=== PATIENT | female | born 1950 | race African-American/Black ===

== ENCOUNTER 2016-06-30 06:53 | Day surgery (SDC) | payer OTHER ==
[~2016-06-30] VITALS: Ht 162.6 cm; Wt 104.3 kg
[~2016-06-30 06:53] MED LIST: LOSA1TAB34 PO; METF-240 PO
[2016-06-30 07:38] LABS: BASOPHILS % 0.8 % (0.0-2.0); EOSINOPHILS % 1.9 % (0.0-5.0); HEMOGLOBIN. 13.2 g/dL (12.0-16.0); LYMPHOCYTES % 44.1 % (20.0-50.0); MEAN CORPUSCULAR HEMOGLOBIN 28.8 pg (28.0-32.0); MEAN CORPUSCULAR VOLUME 87.2 fL (81.0-99.0); MEAN PLATELET VOLUME 8.7 fl (7.4-10.4); NEUTROPHILS % 46.2 % (40.0-76.0); PLATELET 261 x1000/uL (130-400); RED BLOOD CELL COUNT 4.59 mill/uL (4.2-5.4); RED CELL DISTRIBUTION WIDTH 15.2 % (11.6-14.6); WHITE BLOOD COUNT 5.8 x1000/uL (4.5-11.0)
[2016-06-30 07:48] LABS: ANION GAP 11; CALCIUM 8.4 mg/dL (8.5-10.1); CARBON DIOXIDE 28 mEq/L (21-32); CHLORIDE 106 mEq/L (98-107); INDEX HEMOLYSI 1 (1-3); INDEX ICTERIC 1 (1-4); INDEX LIPEMIC 1 (1-3); PARTIAL THROMBOPLASTIN TIME 28.5 sec (24.0-34.0); PROTHROMBIN TIME 10.5 sec; UREA NITROGEN BLOOD 11 mg/dL (7-21); eGFR > 60 mL/min (>60)
[2016-06-30 07:59] LABS: CLARITY URINE CLEAR (CLEAR); COLOR URINE YELLOW (YELLOW); GLUCOSE URINE NEGATIVE (NEGATIVE); KETONES URINE NEGATIVE (NEGATIVE); LEUKOCYTE ESTERASE URINE NEGATIVE (NEGATIVE); NITRITE URINE NEGATIVE (NEGATIVE); OCCULT BLOOD URINE NEGATIVE (NEGATIVE); PH URINE 5.5 (4.5-8.0); PROTEIN URINE NEGATIVE (NEGATIVE)
[2016-06-30 08:00] LABS: UCG SCREEN NEGATIVE
[2016-06-30] MEDS ORDERED: SODIUM CHLORIDE 0.9% 1,000 ML IV SCH (08:00)
[2016-06-30] MEDS ORDERED: FENTANYL CITRATE/PF 50MCG/ML 2ML VIAL IV PRN (09:15)
[2016-06-30] MEDS ORDERED: ONDANSETRON HCL 4MG/2ML VIAL IV PRN (09:15)
[2016-06-30] MEDS ORDERED: HYDROMORPHONE HCL/PF 2MG/ML CPJ IV PRN (09:15)
[2016-06-30] MEDS ORDERED: MIDAZOLAM HCL 2 MG/2 ML VIAL ONE (09:16)
[2016-06-30] MEDS ORDERED: FENTANYL CITRATE/PF 50MCG/ML 2ML VIAL ONE (09:16)
[2016-06-30] MEDS ORDERED: CEFAZOLIN SODIUM 1000MG/VIAL ONE (09:52)
[2016-06-30] MEDS ORDERED: PROPOFOL 200MG/20ML VIAL IV ONE (10:26)
[2016-06-30] MEDS ORDERED: HYDROCODONE/ACETAMINOPHEN 5/325MG TABLET PO PRN (10:45)
[2016-06-30 12:34] VITALS: BP 134/79
== END 2016-06-30 14:30 | disposition home or self-care (01) ==
LOC: OR 06:53
PROVIDERS: ATTEND Obstetrics & Gynecology Obstetrics
DX: N84.0 Polyp of corpus uteri (principal); E11.9 Type 2 diabetes mellitus without complications; I10 Essential (primary) hypertension; E66.9 Obesity, unspecified
CPT/HCPCS: 36415; 58558; 80048; 81003; 81025; 85025; 85610; 85730; 88305; 93005; J0690; J2250; J3010; J7030; J2704

== ENCOUNTER 2017-06-29 05:22 | Day surgery (SDC) | payer OTHER ==
[~2017-06-29] VITALS: Ht 162.6 cm; Wt 99.8 kg
[~2017-06-29 05:22] MED LIST changes: -METF-240 PO; +METF500T4 PO
[2017-06-29 06:14] LABS: BASOPHILS % 1.1 % (0.0-2.0); EOSINOPHILS % 1.7 % (0.0-5.0); HEMATOCRIT. 40.9 % (36.0-48.0); HEMOGLOBIN. 13.8 g/dL (12.0-16.0); LYMPHOCYTES % 39.9 % (20.0-50.0); MEAN CORPUSCULAR HEMOGLOBIN 29.6 pg (28.0-32.0); MEAN PLATELET VOLUME 8.5 fl (7.4-10.4); MONOCYTES % 6.6 % (2.0-8.0); NEUTROPHILS % 50.7 % (40.0-76.0); PLATELET 260 x1000/uL (130-400); RED BLOOD CELL COUNT 4.65 mill/uL (4.2-5.4); RED CELL DISTRIBUTION WIDTH 15.2 % (11.6-14.6)
[2017-06-29 06:23] LABS: PARTIAL THROMBOPLASTIN TIME 28.5 sec (23.4-31.0); PROTHROMBIN TIME 10.6 sec (9.4-11.6)
[2017-06-29 06:27] LABS: CHLORIDE 106 mEq/L (98-107)
[2017-06-29] MEDS ORDERED: LACTATED RINGERS 1,000 ML IV SCH (06:30)
[2017-06-29 06:31] LABS: CLARITY URINE CLOUDY (CLEAR); COLOR URINE YELLOW (YELLOW); KETONES URINE NEGATIVE (NEGATIVE); LEUKOCYTE ESTERASE URINE NEGATIVE (NEGATIVE); NITRITE URINE NEGATIVE (NEGATIVE); OCCULT BLOOD URINE NEGATIVE (NEGATIVE); PH URINE 5.5 (4.5-8.0); PROTEIN URINE NEGATIVE (NEGATIVE); UROBILINOGEN URINE 0.2 E.U./dL (0.2-1.0)
[2017-06-29 06:34] LABS: UCG SCREEN NEGATIVE
[2017-06-29] MEDS ORDERED: MIDAZOLAM HCL 2 MG/2 ML VIAL ONE (07:16)
[2017-06-29] MEDS ORDERED: PROPOFOL 200MG/20ML VIAL IV ONE (07:16)
[2017-06-29] MEDS ORDERED: FENTANYL CITRATE/PF 50MCG/ML 2ML VIAL ONE (07:16)
[2017-06-29] MEDS ORDERED: SODIUM CHLORIDE 0.9% 10ML VIAL ONE (07:18)
[2017-06-29] MEDS ORDERED: CEFAZOLIN SODIUM 1000MG/VIAL ONE (07:18)
[2017-06-29] MEDS ORDERED: LIDOCAINE HCL/PF 1% 10 MG/ML 5ML VIAL ONE (07:29)
[2017-06-29] MEDS ORDERED: GLYCOPYRROLATE 0.2 MG/ML 2ML VIAL ONE (07:33)
[2017-06-29] MEDS ORDERED: MORPHINE SULFATE 2 MG/ML CPJ (NOT FOR IM USE) IV PRN (07:45)
[2017-06-29] MEDS ORDERED: ONDANSETRON HCL 4MG/2ML VIAL IV PRN (07:45)
[2017-06-29] MEDS ORDERED: FENTANYL CITRATE/PF 50MCG/ML 2ML VIAL IV PRN (07:45)
[2017-06-29] MEDS ORDERED: MEPERIDINE HCL/PF 25MG/ML CPJ IV PRN (07:45)
== END 2017-06-29 10:35 | disposition home or self-care (01) ==
LOC: OR 05:22
PROVIDERS: ATTEND Obstetrics & Gynecology Obstetrics
DX: N84.0 Polyp of corpus uteri (principal); Z83.3 Family history of diabetes mellitus; Z98.890 Other specified postprocedural states; E11.9 Type 2 diabetes mellitus without complications; I10 Essential (primary) hypertension; E66.9 Obesity, unspecified
CPT/HCPCS: 36415; 58558; 80048; 81003; 81025; 85025; 85610; 85730; 88305; 93005; A4216; J0690; J2250; J3010; J3490; J7120; J2704

== ENCOUNTER 2019-08-21 12:39 | Inpatient (IN) | payer OTHER ==
[~2019-08-21] VITALS: Ht 167.6 cm; Wt 93.1 kg
[~2019-08-21 12:39] MED LIST changes: +METF-414 PO; -METF500T4 PO
[2019-08-21] MEDS ORDERED: ACETAMINOPHEN 325MG TABLET PO STA (12:49)
[2019-08-21] MEDS ORDERED: ACETAMINOPHEN 325MG TABLET PO ONE (13:30)
[2019-08-21] MEDS ORDERED: ALBUTEROL 6.7GM HFA INHALER ORI ONE (14:15)
[2019-08-21 14:17] LABS: BASOPHILS % 0.8 % (0.0-2.0); HEMATOCRIT. 37.9 % (36.0-48.0); HEMOGLOBIN. 12.8 g/dL (12.0-16.0); LYMPHOCYTES % 17.9 % (20.0-50.0); MEAN CORPUSCULAR HEMOGLOBIN 30.1 pg (28.0-32.0); MEAN CORPUSCULAR VOLUME 88.9 fL (81.0-99.0); MEAN PLATELET VOLUME 9.6 fl (7.4-10.4); MONOCYTES % 4.6 % (2.0-8.0); NEUTROPHILS % 76.7 % (40.0-76.0); PLATELET 216 x1000/uL (130-400); RED BLOOD CELL COUNT 4.26 mill/uL (4.2-5.4); RED CELL DISTRIBUTION WIDTH 14.9 % (11.6-14.6)
[2019-08-21 14:21] LABS: CHLORIDE 105 mEq/L (98-107)
[2019-08-21] MEDS ORDERED: HYDROCODONE/ACETAMINOPHEN 5/325MG TABLET PO PRN (14:30)
[2019-08-21] MEDS ORDERED: GUAIFENESIN 200MG/10ML SUGAR FREE UDC PO PRN (14:30)
[2019-08-21] MEDS ORDERED: LORAZEPAM 0.5MG TABLET PO PRN (14:30)
[2019-08-21] MEDS ORDERED: NA PHOS,M-B/NA PHOS,DI-BA ENEMA 118ML PR PRN (14:30)
[2019-08-21] MEDS ORDERED: ONDANSETRON HCL 4MG/2ML INJ IV PRN (14:30)
[2019-08-21] MEDS ORDERED: PIPERACILLIN/TAZOBACTAM 2.25 G in DEXTROSE 5% WATER 50 ML IV SCH (14:30)
[2019-08-21] MEDS ORDERED: IPRATROPIUM/ALBUTEROL 0.5-3(2.5)MG/3ML NEB NEB PRN (14:30)
[2019-08-21] MEDS ORDERED: MAGNESIUM/ALUMINUM HYDROXIDE/SIMETHICONE 30ML UDC PO PRN (14:30)
[2019-08-21] MEDS ORDERED: DIPHENHYDRAMINE 50MG/ML VIAL IV PRN (14:30)
[2019-08-21] MEDS ORDERED: ACETAMINOPHEN 325MG TABLET PO PRN (14:30)
[2019-08-21] MEDS: DEXT 5%/0.45% NACL 1000ML 1,000 ML IV SCH (14:30)
[2019-08-21] MEDS ORDERED: CLONIDINE 0.1MG TABLET PO PRN (14:30)
[2019-08-21] MEDS ORDERED: DOCUSATE SODIUM 100MG CAPSULE PO PRN (14:30)
[2019-08-21 14:59] LABS: BG BASE EXCESS -6.1 mmol/L (-2.0-2.0); BG CARBOXYHEMOGLOBIN 0.2 % (0.5-1.5); BG DEOXYHEMOGLOBIN 7.3 % (0.0-5.0); BG HCO3 ACT 17.8 mmol/L (22.0-26.0); BG METHEMOGLOBIN 0.3 % (0.0-1.5); BG OXYGEN SATURATION 92.7 % (92.0-98.5); BG OXYHEMOGLOBIN 92.2 % (94.0-97.0); BG PCO2 30.3 mmHg (35.0-45.0); BG PH 7.386 (7.350-7.450); BG PO2 74.8 mmHg (75.0-100.0); BG SAMPLE SITE RIGHT BRACHIAL; BG TOTAL HEMOGLOBIN 12.4 g/dL (12.0-18.0); BG VENT MODE NASAL CANNULA
[2019-08-21] MEDS ORDERED: PIPERACILLIN/TAZ 3.375G PREMIX 50 ML IV SCH (16:33)
[2019-08-21] MEDS: FAMOTIDINE 20MG/2ML VIAL IV SCH (17:33)
[2019-08-21 23:02] LABS: BG BASE EXCESS -1.8 mmol/L (-2.0-2.0); BG CARBOXYHEMOGLOBIN 0.3 % (0.5-1.5); BG DEOXYHEMOGLOBIN 20.3 % (0.0-5.0); BG FRACTION INSPIRED OXYGEN 100; BG HCO3 ACT 23.3 mmol/L (22.0-26.0); BG OXYGEN SATURATION 79.6 % (92.0-98.5); BG OXYHEMOGLOBIN 79.4 % (94.0-97.0); BG PCO2 40.8 mmHg (35.0-45.0); BG PH 7.374 (7.350-7.450); BG PO2 46.1 mmHg (75.0-100.0); BG SAMPLE SITE RIGHT RADIAL; BG TOTAL HEMOGLOBIN 12.8 g/dL (12.0-18.0); BG VENT MODE MASK - NRB
[2019-08-22] MEDS ORDERED: ETOMIDATE 2MG/ML 10ML VIAL IV ONE (00:02)
[2019-08-22] MEDS ORDERED: SUCCINYLCHOLINE CHLORIDE 200MG/10ML IV ONE (00:02)
[2019-08-22] MEDS ORDERED: PROPOFOL 10MG/ML 100ML 100 ML IV SCH (00:15)
[2019-08-22] MEDS: MORPHINE SULFATE 2 MG/ML CPJ (NOT FOR IM USE) IV PRN (01:24)
[2019-08-22 02:09] LABS: CREATINE KINASE MB FRACTION 1.6 ng/mL (0.5-3.6)
[2019-08-22] MEDS: MIDAZOLAM 50 MG in DEXTROSE 5% WATER 50ML IV PRN ×2 (02:49→09:00)
[2019-08-22 03:17] LABS: BG BASE EXCESS -1.5 mmol/L (-2.0-2.0); BG CARBOXYHEMOGLOBIN 0.1 % (0.5-1.5); BG DEOXYHEMOGLOBIN 16.7 % (0.0-5.0); BG FRACTION INSPIRED OXYGEN 100; BG HCO3 ACT 23.2 mmol/L (22.0-26.0); BG METHEMOGLOBIN 0.1 % (0.0-1.5); BG OXYGEN SATURATION 83.3 % (92.0-98.5); BG OXYHEMOGLOBIN 83.1 % (94.0-97.0); BG PH 7.392 (7.350-7.450); BG PO2 50.1 mmHg (75.0-100.0); BG SAMPLE SITE RIGHT BRACHIAL; BG TIDAL VOLUME(mL) 450 mL; BG TOTAL HEMOGLOBIN 12.3 g/dL (12.0-18.0); BG VENT MODE VENT - A/C; BG VENT RATE 14 set
[2019-08-22 04:22] LABS: BASOPHILS % 0.5 % (0.0-2.0); LYMPHOCYTES % 15.6 % (20.0-50.0); MEAN CORPUSCULAR HEMOGLOBIN 29.9 pg (28.0-32.0); MEAN CORPUSCULAR VOLUME 89.7 fL (81.0-99.0); MEAN PLATELET VOLUME 8.7 fl (7.4-10.4); MONOCYTES % 3.3 % (2.0-8.0); NEUTROPHILS % 80.6 % (40.0-76.0); PLATELET 177 x1000/uL (130-400); RED BLOOD CELL COUNT 4.35 mill/uL (4.2-5.4)
[2019-08-22 04:40] LABS: CHLORIDE 109 mEq/L (98-107)
[2019-08-22 04:48] LABS: HDL CHOLESTEROL 40 mg/dL (40-59)
[2019-08-22 04:49] LABS: LDL CHOLESTEROL 66 mg/dL (5-100)
[2019-08-22 04:50] LABS: CREATINE KINASE 206 IU/L (26-192); CREATINE KINASE MB FRACTION 1.7 ng/mL (0.5-3.6); T4 FREE 1.12 ng/dL (0.76-1.46)
[2019-08-22] MEDS ORDERED: MIDAZOLAM HCL 50 MG in DEXTROSE 5% WATER 40 ML IV PRN (05:00)
[2019-08-22] MEDS ORDERED: NOREPINEPHRINE 4MG/250ML PMX 250 ML IV ONE (06:48)
[2019-08-22] MEDS: FAMOTIDINE 20MG/2ML VIAL IV SCH (09:00)
[2019-08-22] MEDS ORDERED: FUROSEMIDE 40MG/4ML VIAL IVP NR (09:45)
[2019-08-22] MEDS: DEXT 5%/0.45% NACL 1000ML 1,000 ML IV SCH (10:30)
[2019-08-22] MEDS ORDERED: PIPERACILLIN/TAZ 3.375G PREMIX 50 ML IV NR (11:15)
[2019-08-22 12:37] LABS: BG CARBOXYHEMOGLOBIN 0.3 % (0.5-1.5); BG DEOXYHEMOGLOBIN 8.6 % (0.0-5.0); BG FRACTION INSPIRED OXYGEN 100; BG HCO3 ACT 23.6 mmol/L (22.0-26.0); BG METHEMOGLOBIN 0.1 % (0.0-1.5); BG OXYGEN SATURATION 91.4 % (92.0-98.5); BG PH 7.447 (7.350-7.450); BG PO2 60.8 mmHg (75.0-100.0); BG SAMPLE SITE RIGHT RADIAL; BG TIDAL VOLUME(mL) 450 mL; BG TOTAL HEMOGLOBIN 11.4 g/dL (12.0-18.0); BG VENT MODE VENT - A/C; BG VENT RATE 14 set
[2019-08-22] MEDS ORDERED: DEXTROSE 50% WATER 50ML SYRINGE IV PRN (14:15)
[2019-08-22] MEDS: ACETAMINOPHEN 650MG SUPP PR PRN (16:19)
[2019-08-22] MEDS: BLOOD SUGAR DIAGNOSTIC STRIP TEST SCH ×2 (17:00→21:00)
[2019-08-22] MEDS: INSULIN LISPRO 100 UNITS/ML SUBCUT SCH (18:20)
[2019-08-23] VITALS (54 sets, daily range): BP systolic 121–167; BP diastolic 66–94
[2019-08-23] MEDS: METHYLPREDNISOLONE SOD SUCC 40 MG/ML VIAL IV SCH ×3 (01:26→17:37)
[2019-08-23] MEDS: ACETAMINOPHEN 650MG SUPP PR PRN (01:45)
[2019-08-23] MEDS: MIDAZOLAM HCL 50 MG in DEXTROSE 5% WATER 40 ML IV PRN ×3 (05:14→22:03)
[2019-08-23 06:04] LABS: BASOPHILS % 0.2 % (0.0-2.0); HEMATOCRIT. 36.5 % (36.0-48.0); HEMOGLOBIN. 12.3 g/dL (12.0-16.0); MEAN CORPUSCULAR HEMOGLOBIN 29.9 pg (28.0-32.0); MEAN CORPUSCULAR VOLUME 88.5 fL (81.0-99.0); MEAN PLATELET VOLUME 8.4 fl (7.4-10.4); MONOCYTES % 3.9 % (2.0-8.0); NEUTROPHILS % 87.9 % (40.0-76.0); PLATELET 211 x1000/uL (130-400); RED BLOOD CELL COUNT 4.12 mill/uL (4.2-5.4); RED CELL DISTRIBUTION WIDTH 15.2 % (11.6-14.6)
[2019-08-23 06:16] LABS: CHLORIDE 108 mEq/L (98-107)
[2019-08-23] MEDS: DEXT 5%/0.45% NACL 1000ML 1,000 ML IV SCH (07:00)
[2019-08-23] MEDS ORDERED: PIPERACILLIN/TAZ 3.375G PREMIX 50 ML IV SCH (08:00)
[2019-08-23] MEDS: ASCORBIC ACID 500 MG TABLET PO SCH (08:37)
[2019-08-23] MEDS: ZINC SULFATE 220 MG ( 50 ) CAPSULE PO SCH (08:37)
[2019-08-23] MEDS: FAMOTIDINE 20MG/2ML VIAL IV SCH (08:37)
[2019-08-23] MEDS ORDERED: ENOXAPARIN 100MG/ML SYR SUBCUT ONE (09:00)
[2019-08-23] MEDS: INSULIN LISPRO 100 UNITS/ML SUBCUT SCH ×4 (09:03→22:23)
[2019-08-23 09:18] LABS: BG CARBOXYHEMOGLOBIN 0.3 % (0.5-1.5); BG DEOXYHEMOGLOBIN 5.6 % (0.0-5.0); BG FRACTION INSPIRED OXYGEN 100; BG HCO3 ACT 23.8 mmol/L (22.0-26.0); BG METHEMOGLOBIN 0.3 % (0.0-1.5); BG OXYGEN SATURATION 94.4 % (92.0-98.5); BG OXYHEMOGLOBIN 93.8 % (94.0-97.0); BG PCO2 35.8 mmHg (35.0-45.0); BG PO2 73.9 mmHg (75.0-100.0); BG SAMPLE SITE RIGHT RADIAL; BG TIDAL VOLUME(mL) 450 mL; BG TOTAL HEMOGLOBIN 12.3 g/dL (12.0-18.0); BG VENT MODE VENT - A/C; BG VENT RATE 14 set
[2019-08-23] MEDS: BLOOD SUGAR DIAGNOSTIC STRIP TEST SCH ×3 (12:08→21:00)
[2019-08-23] MEDS: PIPERACILLIN/TAZOBACTAM 3.375 G in DEXT 5% WATER 100 ML IV SCH ×2 (12:30→17:37)
[2019-08-23] MEDS ORDERED: POTASSIUM CHLORIDE INJ 40 MEQ in DEXT 5% WATER 250 ML IV NR (12:30)
[2019-08-23] MEDS: ENOXAPARIN 100MG/ML SYR SUBCUT SCH ×2 (12:31→21:38)
[2019-08-23 14:03] LABS: BG CARBOXYHEMOGLOBIN 0.2 % (0.5-1.5); BG DEOXYHEMOGLOBIN 8.7 % (0.0-5.0); BG FRACTION INSPIRED OXYGEN 80; BG HCO3 ACT 23.4 mmol/L (22.0-26.0); BG OXYGEN SATURATION 91.3 % (92.0-98.5); BG OXYHEMOGLOBIN 91.1 % (94.0-97.0); BG PCO2 33.9 mmHg (35.0-45.0); BG PH 7.456 (7.350-7.450); BG PO2 61.6 mmHg (75.0-100.0); BG SAMPLE SITE RIGHT RADIAL; BG TIDAL VOLUME(mL) 450 mL; BG TOTAL HEMOGLOBIN 13.2 g/dL (12.0-18.0); BG VENT MODE VENT - A/C; BG VENT RATE 14 set
[2019-08-23] MEDS ORDERED: PIPERACILLIN/TAZOBACTAM 3.375 G in DEXT 5% WATER 100 ML IV SCH (18:00)
[2019-08-23] MEDS: IPRATROPIUM/ALBUTEROL 0.5-3(2.5)MG/3ML NEB NEB SCH (20:15)
[2019-08-24] VITALS (95 sets, daily range): BP systolic 126–174; BP diastolic 51–89
[2019-08-24] MEDS: PIPERACILLIN/TAZOBACTAM 3.375 G in DEXT 5% WATER 100 ML IV SCH ×5 (01:36→23:12)
[2019-08-24] MEDS: MIDAZOLAM HCL 50 MG in DEXTROSE 5% WATER 40 ML IV PRN ×4 (03:57→20:13)
[2019-08-24] MEDS: DEXT 5%/0.45% NACL 1000ML 1,000 ML IV SCH (04:10)
[2019-08-24 05:48] LABS: CHLORIDE 106 mEq/L (98-107); INR 1.1; PROTHROMBIN TIME 11.4 sec (9.6-11.0)
[2019-08-24 05:51] LABS: HEMATOCRIT 35.9 % (36.0-48.0); HEMOGLOBIN 12.2 g/dL (12.0-16.0); MEAN CORPUSCULAR VOLUME 87.8 fL (81.0-99.0); PLATELET 237 x1000/uL (130-400); RED BLOOD CELL COUNT 4.08 mill/uL (4.2-5.4); RED CELL DISTRIBUTION WIDTH 14.8 % (11.6-14.6)
[2019-08-24] MEDS: BLOOD SUGAR DIAGNOSTIC STRIP TEST SCH ×4 (06:30→21:50)
[2019-08-24] MEDS: METHYLPREDNISOLONE SOD SUCC 40 MG/ML VIAL IV SCH ×3 (07:38→17:25)
[2019-08-24] MEDS: INSULIN LISPRO 100 UNITS/ML SUBCUT SCH ×4 (07:40→21:00)
[2019-08-24 07:44] LABS: BG BASE EXCESS -0.9 mmol/L (-2.0-2.0); BG CARBOXYHEMOGLOBIN 0.2 % (0.5-1.5); BG DEOXYHEMOGLOBIN 4.7 % (0.0-5.0); BG HCO3 ACT 23.1 mmol/L (22.0-26.0); BG OXYGEN SATURATION 95.3 % (92.0-98.5); BG OXYHEMOGLOBIN 95.1 % (94.0-97.0); BG PCO2 36.5 mmHg (35.0-45.0); BG PO2 80.3 mmHg (75.0-100.0); BG SAMPLE SITE RIGHT BRACHIAL; BG TIDAL VOLUME(mL) 450 mL; BG TOTAL HEMOGLOBIN 13.2 g/dL (12.0-18.0); BG VENT MODE VENT - A/C; BG VENT RATE 14 set
[2019-08-24] MEDS: IPRATROPIUM/ALBUTEROL 0.5-3(2.5)MG/3ML NEB NEB SCH ×2 (08:10→12:10)
[2019-08-24] MEDS: FAMOTIDINE 20MG/2ML VIAL IV SCH (08:54)
[2019-08-24] MEDS: ZINC SULFATE 220 MG ( 50 ) CAPSULE PO SCH (08:55)
[2019-08-24] MEDS: ENOXAPARIN 100MG/ML SYR SUBCUT SCH ×2 (08:55→21:11)
[2019-08-24] MEDS: ASCORBIC ACID 500 MG TABLET PO SCH (08:55)
[2019-08-24] MEDS: DOXYCYCLINE 100 MG in DEXT 5% WATER 100 ML IV SCH ×2 (12:40→23:12)
[2019-08-24 16:52] LABS: CLARITY URINE CLEAR (CLEAR); COLOR URINE YELLOW (YELLOW); KETONES URINE NEGATIVE (NEGATIVE); LEUKOCYTE ESTERASE URINE NEGATIVE (NEGATIVE); NITRITE URINE NEGATIVE (NEGATIVE); OCCULT BLOOD URINE 1+ (NEGATIVE); PROTEIN URINE 1+ (NEGATIVE); SPECIFIC GRAVITY URINE 1.025 (1.005-1.030)
[2019-08-25] VITALS (98 sets, daily range): BP systolic 91–187; BP diastolic 40–115
[2019-08-25] MEDS: METHYLPREDNISOLONE SOD SUCC 40 MG/ML VIAL IV SCH ×3 (00:53→22:36)
[2019-08-25] MEDS: MIDAZOLAM HCL 50 MG in DEXTROSE 5% WATER 40 ML IV PRN ×5 (01:19→20:44)
[2019-08-25 04:55] LABS: HEMATOCRIT. 39.3 % (36.0-48.0); HEMOGLOBIN. 12.9 g/dL (12.0-16.0); MEAN CORPUSCULAR VOLUME 88.4 fL (81.0-99.0); PLATELET 272 x1000/uL (130-400); RED BLOOD CELL COUNT 4.44 mill/uL (4.2-5.4)
[2019-08-25 05:02] LABS: CHLORIDE 106 mEq/L (98-107)
[2019-08-25] MEDS: PIPERACILLIN/TAZOBACTAM 3.375 G in DEXT 5% WATER 100 ML IV SCH ×3 (06:10→17:02)
[2019-08-25] MEDS: BLOOD SUGAR DIAGNOSTIC STRIP TEST SCH ×4 (07:21→21:00)
[2019-08-25] MEDS: INSULIN LISPRO 100 UNITS/ML SUBCUT SCH ×4 (07:29→21:00)
[2019-08-25] MEDS: ZINC SULFATE 220 MG ( 50 ) CAPSULE PO SCH (08:12)
[2019-08-25] MEDS: ASCORBIC ACID 500 MG TABLET PO SCH (08:12)
[2019-08-25] MEDS: ENOXAPARIN 100MG/ML SYR SUBCUT SCH ×2 (08:13→22:40)
[2019-08-25] MEDS: FAMOTIDINE 20MG/2ML VIAL IV SCH (08:13)
[2019-08-25] MEDS: DOXYCYCLINE 100 MG in DEXT 5% WATER 100 ML IV SCH ×2 (08:16→22:36)
[2019-08-25] MEDS: HYDRALAZINE 20MG/ML VIAL IV PRN (09:05)
[2019-08-25 09:31] LABS: BG BASE EXCESS 0.8 mmol/L (-2.0-2.0); BG CARBOXYHEMOGLOBIN 0.2 % (0.5-1.5); BG DEOXYHEMOGLOBIN 8.2 % (0.0-5.0); BG FRACTION INSPIRED OXYGEN 70; BG HCO3 ACT 24.3 mmol/L (22.0-26.0); BG OXYGEN SATURATION 91.8 % (92.0-98.5); BG OXYHEMOGLOBIN 91.6 % (94.0-97.0); BG PCO2 35.3 mmHg (35.0-45.0); BG PH 7.456 (7.350-7.450); BG PO2 62.4 mmHg (75.0-100.0); BG SAMPLE SITE RIGHT RADIAL; BG TIDAL VOLUME(mL) 450 mL; BG TOTAL HEMOGLOBIN 12.3 g/dL (12.0-18.0); BG VENT MODE VENT - A/C; BG VENT RATE 14 set
[2019-08-25 10:35] LABS: PLATELET ESTIMATE NORMAL
[2019-08-26] VITALS (110 sets, daily range): BP systolic 80–181; BP diastolic 28–109
[2019-08-26] MEDS: PIPERACILLIN/TAZOBACTAM 3.375 G in DEXT 5% WATER 100 ML IV SCH ×4 (00:43→17:28)
[2019-08-26] MEDS: MIDAZOLAM HCL 50 MG in DEXTROSE 5% WATER 40 ML IV PRN ×3 (03:08→13:51)
[2019-08-26] MEDS: BLOOD SUGAR DIAGNOSTIC STRIP TEST SCH ×4 (07:18→21:45)
[2019-08-26] MEDS: INSULIN LISPRO 100 UNITS/ML SUBCUT SCH ×4 (07:26→21:45)
[2019-08-26] MEDS: ALBUTEROL 6.7GM HFA INHALER INH SCH ×2 (08:00→16:00)
[2019-08-26 09:00] LABS: BG BASE EXCESS 2.7 mmol/L (-2.0-2.0); BG CARBOXYHEMOGLOBIN 0.4 % (0.5-1.5); BG DEOXYHEMOGLOBIN 7.8 % (0.0-5.0); BG FRACTION INSPIRED OXYGEN 70; BG HCO3 ACT 26.2 mmol/L (22.0-26.0); BG METHEMOGLOBIN 0.1 % (0.0-1.5); BG OXYGEN SATURATION 92.2 % (92.0-98.5); BG OXYHEMOGLOBIN 91.7 % (94.0-97.0); BG PCO2 36.8 mmHg (35.0-45.0); BG PO2 63.4 mmHg (75.0-100.0); BG SAMPLE SITE RIGHT RADIAL; BG TIDAL VOLUME(mL) 450 mL; BG TOTAL HEMOGLOBIN 13.5 g/dL (12.0-18.0); BG VENT MODE VENT - A/C; BG VENT RATE 14 set
[2019-08-26] MEDS: PROPOFOL 10MG/ML 100ML 100 ML IV PRN ×2 (09:54→19:02)
[2019-08-26] MEDS: FAMOTIDINE 20MG/2ML VIAL IV SCH (10:06)
[2019-08-26] MEDS: DOXYCYCLINE 100 MG in DEXT 5% WATER 100 ML IV SCH ×2 (10:07→21:57)
[2019-08-26] MEDS: ASCORBIC ACID 500 MG TABLET PO SCH (10:07)
[2019-08-26] MEDS: ZINC SULFATE 220 MG ( 50 ) CAPSULE PO SCH (10:07)
[2019-08-26] MEDS: METHYLPREDNISOLONE SOD SUCC 40 MG/ML VIAL IV SCH ×2 (10:07→21:57)
[2019-08-26] MEDS: ENOXAPARIN 100MG/ML SYR SUBCUT SCH ×2 (10:08→21:58)
[2019-08-26 11:11] LABS: HEMATOCRIT. 37.1 % (36.0-48.0); HEMOGLOBIN. 12.5 g/dL (12.0-16.0); MEAN CORPUSCULAR HEMOGLOBIN 29.8 pg (28.0-32.0); MEAN CORPUSCULAR VOLUME 88.6 fL (81.0-99.0); MEAN PLATELET VOLUME 8.5 fl (7.4-10.4); PLATELET 253 x1000/uL (130-400); RED BLOOD CELL COUNT 4.19 mill/uL (4.2-5.4); RED CELL DISTRIBUTION WIDTH 14.9 % (11.6-14.6)
[2019-08-26 11:17] LABS: CHLORIDE 107 mEq/L (98-107)
[2019-08-26 12:58] LABS: PLATELET ESTIMATE NORMAL
[2019-08-26] MEDS ORDERED: CLONIDINE 0.1MG TABLET PO PRN (15:15)
[2019-08-26] MEDS: HYDRALAZINE 20MG/ML VIAL IV PRN (19:06)
[2019-08-26] MEDS: MORPHINE SULFATE 2 MG/ML CPJ (NOT FOR IM USE) IV PRN (21:59)
[2019-08-27] VITALS (60 sets, daily range): BP systolic 99–170; BP diastolic 55–96
[2019-08-27] MEDS: PROPOFOL 10MG/ML 100ML 100 ML IV PRN ×6 (00:10→21:05)
[2019-08-27] MEDS: PIPERACILLIN/TAZOBACTAM 3.375 G in DEXT 5% WATER 100 ML IV SCH ×5 (00:13→23:24)
[2019-08-27] MEDS: BLOOD SUGAR DIAGNOSTIC STRIP TEST SCH ×4 (05:40→20:53)
[2019-08-27] MEDS: INSULIN LISPRO 100 UNITS/ML SUBCUT SCH ×4 (07:00→20:55)
[2019-08-27 07:08] LABS: HEMATOCRIT 33.8 % (36.0-48.0); HEMOGLOBIN 11.5 g/dL (12.0-16.0); MEAN CORPUSCULAR HEMOGLOBIN 29.8 pg (28.0-32.0); MEAN CORPUSCULAR VOLUME 87.5 fL (81.0-99.0); PLATELET 246 x1000/uL (130-400); RED BLOOD CELL COUNT 3.87 mill/uL (4.2-5.4); RED CELL DISTRIBUTION WIDTH 14.6 % (11.6-14.6)
[2019-08-27 07:43] LABS: CHLORIDE 106 mEq/L (98-107)
[2019-08-27] MEDS: ALBUTEROL 6.7GM HFA INHALER INH SCH ×3 (08:00→20:03)
[2019-08-27 08:32] LABS: BG BASE EXCESS 3.4 mmol/L (-2.0-2.0); BG DEOXYHEMOGLOBIN 3.5 % (0.0-5.0); BG HCO3 ACT 27.3 mmol/L (22.0-26.0); BG METHEMOGLOBIN 0.3 % (0.0-1.5); BG OXYGEN SATURATION 96.5 % (92.0-98.5); BG OXYHEMOGLOBIN 96.2 % (94.0-97.0); BG PCO2 39.1 mmHg (35.0-45.0); BG PH 7.462 (7.350-7.450); BG PO2 92.8 mmHg (75.0-100.0); BG SAMPLE SITE RIGHT RADIAL; BG TIDAL VOLUME(mL) 450 mL; BG VENT MODE VENT - A/C; BG VENT RATE 14 set
[2019-08-27] MEDS: ASCORBIC ACID 500 MG TABLET PO SCH (08:57)
[2019-08-27] MEDS: FAMOTIDINE 20MG/2ML VIAL IV SCH (08:57)
[2019-08-27] MEDS: METHYLPREDNISOLONE SOD SUCC 40 MG/ML VIAL IV SCH ×2 (08:57→20:51)
[2019-08-27] MEDS: ENOXAPARIN 100MG/ML SYR SUBCUT SCH ×2 (08:58→20:52)
[2019-08-27] MEDS: DOXYCYCLINE 100 MG in DEXT 5% WATER 100 ML IV SCH ×2 (10:13→20:52)
[2019-08-27] MEDS: ZINC SULFATE 220 MG ( 50 ) CAPSULE PO SCH (10:20)
[2019-08-27 13:35] LABS: BG FRACTION INSPIRED OXYGEN 90
[2019-08-27 14:51] LABS: BG BASE EXCESS 2.3 mmol/L (-2.0-2.0); BG DEOXYHEMOGLOBIN 2.5 % (0.0-5.0); BG FRACTION INSPIRED OXYGEN 70; BG METHEMOGLOBIN 0.2 % (0.0-1.5); BG OXYGEN SATURATION 97.5 % (92.0-98.5); BG OXYHEMOGLOBIN 97.3 % (94.0-97.0); BG PCO2 37.4 mmHg (35.0-45.0); BG PO2 108.4 mmHg (75.0-100.0); BG SAMPLE SITE RIGHT RADIAL; BG TIDAL VOLUME(mL) 450 mL; BG TOTAL HEMOGLOBIN 12.7 g/dL (12.0-18.0); BG VENT MODE VENT - A/C; BG VENT RATE 14 set
[2019-08-28] VITALS (50 sets, daily range): BP systolic 101–166; BP diastolic 48–75
[2019-08-28] MEDS: ALBUTEROL 6.7GM HFA INHALER INH SCH ×2 (04:03→09:15)
[2019-08-28] MEDS: PIPERACILLIN/TAZOBACTAM 3.375 G in DEXT 5% WATER 100 ML IV SCH ×3 (05:27→17:31)
[2019-08-28] MEDS: BLOOD SUGAR DIAGNOSTIC STRIP TEST SCH ×4 (05:28→21:00)
[2019-08-28] MEDS: INSULIN LISPRO 100 UNITS/ML SUBCUT SCH ×4 (06:21→21:00)
[2019-08-28] MEDS: ZINC SULFATE 220 MG ( 50 ) CAPSULE PO SCH (09:06)
[2019-08-28] MEDS: FAMOTIDINE 20MG/2ML VIAL IV SCH (09:06)
[2019-08-28] MEDS: DOXYCYCLINE 100 MG in DEXT 5% WATER 100 ML IV SCH ×2 (09:06→21:00)
[2019-08-28] MEDS: ASCORBIC ACID 500 MG TABLET PO SCH (09:06)
[2019-08-28] MEDS: METHYLPREDNISOLONE SOD SUCC 40 MG/ML VIAL IV SCH ×2 (09:07→21:00)
[2019-08-28] MEDS: ENOXAPARIN 100MG/ML SYR SUBCUT SCH ×2 (09:07→21:00)
[2019-08-28] MEDS: PROPOFOL 10MG/ML 100ML 100 ML IV PRN ×3 (10:26→20:18)
[2019-08-28 11:09] LABS: BG BASE EXCESS 2.8 mmol/L (-2.0-2.0); BG CARBOXYHEMOGLOBIN 0.3 % (0.5-1.5); BG DEOXYHEMOGLOBIN 11.6 % (0.0-5.0); BG FRACTION INSPIRED OXYGEN 70; BG HCO3 ACT 26.3 mmol/L (22.0-26.0); BG METHEMOGLOBIN 0.1 % (0.0-1.5); BG OXYGEN SATURATION 88.4 % (92.0-98.5); BG PCO2 36.7 mmHg (35.0-45.0); BG PH 7.473 (7.350-7.450); BG SAMPLE SITE RIGHT BRACHIAL; BG TIDAL VOLUME(mL) 450 mL; BG VENT MODE VENT - A/C; BG VENT RATE 14 set
[2019-08-28 12:44] LABS: HEMOGLOBIN 11.7 g/dL (12.0-16.0); MEAN CORPUSCULAR HEMOGLOBIN 29.6 pg (28.0-32.0); MEAN CORPUSCULAR VOLUME 88.2 fL (81.0-99.0); PLATELET 251 x1000/uL (130-400); RED BLOOD CELL COUNT 3.97 mill/uL (4.2-5.4); RED CELL DISTRIBUTION WIDTH 15.2 % (11.6-14.6)
[2019-08-28 12:52] LABS: CHLORIDE 106 mEq/L (98-107)
[2019-08-28] MEDS ORDERED: LORAZEPAM 2MG/ML CPJ IV PRN (13:30)
[2019-08-28] MEDS ORDERED: PROPOFOL 10MG/ML 100ML 100 ML IV PRN (15:15)
[2019-08-29] VITALS (65 sets, daily range): BP systolic 80–156; BP diastolic 51–77
[2019-08-29] MEDS: PROPOFOL 10MG/ML 100ML 100 ML IV PRN ×4 (00:53→22:56)
[2019-08-29] MEDS: INSULIN LISPRO 100 UNITS/ML SUBCUT SCH ×5 (05:29→20:37)
[2019-08-29] MEDS: BLOOD SUGAR DIAGNOSTIC STRIP TEST SCH ×4 (05:30→20:39)
[2019-08-29 05:56] LABS: CHLORIDE 107 mEq/L (98-107)
[2019-08-29] MEDS: ACETYLCYSTEINE 100MG/ML 10% VIAL 4ML INH SCH ×2 (06:00→14:00)
[2019-08-29] MEDS: ALBUTEROL 6.7GM HFA INHALER INH SCH ×3 (06:00→18:00)
[2019-08-29 08:15] LABS: HEMATOCRIT 37.3 % (36.0-48.0); HEMOGLOBIN 12.2 g/dL (12.0-16.0); MEAN CORPUSCULAR HEMOGLOBIN 29.4 pg (28.0-32.0); MEAN CORPUSCULAR VOLUME 90.1 fL (81.0-99.0); PLATELET 232 x1000/uL (130-400); RED BLOOD CELL COUNT 4.14 mill/uL (4.2-5.4); RED CELL DISTRIBUTION WIDTH 15.3 % (11.6-14.6)
[2019-08-29] MEDS: ZINC SULFATE 220 MG ( 50 ) CAPSULE PO SCH (09:24)
[2019-08-29] MEDS: METHYLPREDNISOLONE SOD SUCC 40 MG/ML VIAL IV SCH ×2 (09:24→20:38)
[2019-08-29] MEDS: FAMOTIDINE 20MG/2ML VIAL IV SCH (09:24)
[2019-08-29] MEDS: ASCORBIC ACID 500 MG TABLET PO SCH (09:24)
[2019-08-29] MEDS: ENOXAPARIN 100MG/ML SYR SUBCUT SCH ×2 (09:25→20:59)
[2019-08-29] MEDS: DOXYCYCLINE 100 MG in DEXT 5% WATER 100 ML IV SCH ×2 (09:52→20:38)
[2019-08-29 10:48] LABS: BG BASE EXCESS 3.5 mmol/L (-2.0-2.0); BG CARBOXYHEMOGLOBIN 0.3 % (0.5-1.5); BG DEOXYHEMOGLOBIN 13.3 % (0.0-5.0); BG FRACTION INSPIRED OXYGEN 100; BG HCO3 ACT 27.6 mmol/L (22.0-26.0); BG METHEMOGLOBIN 0.1 % (0.0-1.5); BG OXYGEN SATURATION 86.6 % (92.0-98.5); BG OXYHEMOGLOBIN 86.3 % (94.0-97.0); BG PCO2 40.4 mmHg (35.0-45.0); BG PH 7.453 (7.350-7.450); BG PO2 53.3 mmHg (75.0-100.0); BG SAMPLE SITE RIGHT RADIAL; BG TIDAL VOLUME(mL) 450 mL; BG TOTAL HEMOGLOBIN 11.4 g/dL (12.0-18.0); BG VENT MODE VENT - A/C; BG VENT RATE 14 set
[2019-08-30] VITALS (95 sets, daily range): BP systolic 92–139; BP diastolic 44–69
[2019-08-30] MEDS: PROPOFOL 10MG/ML 100ML 100 ML IV PRN ×6 (03:06→21:20)
[2019-08-30 05:19] LABS: HEMATOCRIT 33.4 % (36.0-48.0); HEMOGLOBIN 11.2 g/dL (12.0-16.0); MEAN CORPUSCULAR HEMOGLOBIN 29.8 pg (28.0-32.0); MEAN CORPUSCULAR VOLUME 89.1 fL (81.0-99.0); PLATELET 310 x1000/uL (130-400); RED BLOOD CELL COUNT 3.76 mill/uL (4.2-5.4); RED CELL DISTRIBUTION WIDTH 15.3 % (11.6-14.6)
[2019-08-30 05:25] LABS: CHLORIDE 105 mEq/L (98-107)
[2019-08-30] MEDS: ALBUTEROL 6.7GM HFA INHALER INH SCH ×3 (06:00→07:25)
[2019-08-30] MEDS: BLOOD SUGAR DIAGNOSTIC STRIP TEST SCH ×4 (06:08→20:05)
[2019-08-30] MEDS: INSULIN LISPRO 100 UNITS/ML SUBCUT SCH ×4 (06:10→20:12)
[2019-08-30] MEDS: ACETYLCYSTEINE 100MG/ML 10% VIAL 4ML INH SCH ×2 (08:10→15:34)
[2019-08-30 08:13] LABS: BG BASE EXCESS 4.1 mmol/L (-2.0-2.0); BG CARBOXYHEMOGLOBIN 0.2 % (0.5-1.5); BG DEOXYHEMOGLOBIN 3.8 % (0.0-5.0); BG FRACTION INSPIRED OXYGEN 100; BG HCO3 ACT 28.1 mmol/L (22.0-26.0); BG METHEMOGLOBIN 0.3 % (0.0-1.5); BG OXYGEN SATURATION 96.2 % (92.0-98.5); BG OXYHEMOGLOBIN 95.7 % (94.0-97.0); BG PCO2 40.2 mmHg (35.0-45.0); BG PH 7.463 (7.350-7.450); BG PO2 89.2 mmHg (75.0-100.0); BG SAMPLE SITE RIGHT BRACHIAL; BG TIDAL VOLUME(mL) 450 mL; BG TOTAL HEMOGLOBIN 10.7 g/dL (12.0-18.0); BG VENT MODE VENT - A/C; BG VENT RATE 14 set
[2019-08-30] MEDS: ENOXAPARIN 100MG/ML SYR SUBCUT SCH ×2 (09:53→20:06)
[2019-08-30] MEDS: METHYLPREDNISOLONE SOD SUCC 40 MG/ML VIAL IV SCH ×2 (09:53→20:05)
[2019-08-30] MEDS: FAMOTIDINE 20MG/2ML VIAL IV SCH (09:53)
[2019-08-30] MEDS: ASCORBIC ACID 500 MG TABLET PO SCH (09:54)
[2019-08-30] MEDS: ZINC SULFATE 220 MG ( 50 ) CAPSULE PO SCH (09:54)
[2019-08-30] MEDS: MORPHINE SULFATE 2 MG/ML CPJ (NOT FOR IM USE) IV PRN (11:23)
[2019-08-30] MEDS: IPRATROPIUM/ALBUTEROL 0.5-3(2.5)MG/3ML NEB HHN SCH ×2 (15:34→20:10)
[2019-08-31] VITALS (57 sets, daily range): BP systolic 97–134; BP diastolic 38–74
[2019-08-31] MEDS: PROPOFOL 10MG/ML 100ML 100 ML IV PRN ×6 (00:57→19:24)
[2019-08-31] MEDS: ACETYLCYSTEINE 100MG/ML 10% VIAL 4ML INH SCH ×2 (01:09→16:05)
[2019-08-31] MEDS: IPRATROPIUM/ALBUTEROL 0.5-3(2.5)MG/3ML NEB HHN SCH ×4 (01:09→20:02)
[2019-08-31 06:01] LABS: CHLORIDE 106 mEq/L (98-107)
[2019-08-31] MEDS: INSULIN LISPRO 100 UNITS/ML SUBCUT SCH ×3 (06:38→17:27)
[2019-08-31] MEDS: BLOOD SUGAR DIAGNOSTIC STRIP TEST SCH ×3 (06:38→16:30)
[2019-08-31] MEDS: METHYLPREDNISOLONE SOD SUCC 40 MG/ML VIAL IV SCH (08:34)
[2019-08-31] MEDS: ZINC SULFATE 220 MG ( 50 ) CAPSULE PO SCH (08:34)
[2019-08-31] MEDS: FAMOTIDINE 20MG/2ML VIAL IV SCH (08:34)
[2019-08-31] MEDS: ASCORBIC ACID 500 MG TABLET PO SCH (08:34)
[2019-08-31 08:48] LABS: BG BASE EXCESS 3.3 mmol/L (-2.0-2.0); BG CARBOXYHEMOGLOBIN 0.4 % (0.5-1.5); BG DEOXYHEMOGLOBIN 4.4 % (0.0-5.0); BG FRACTION INSPIRED OXYGEN 95; BG METHEMOGLOBIN 0.2 % (0.0-1.5); BG OXYGEN SATURATION 95.6 % (92.0-98.5); BG PCO2 43.1 mmHg (35.0-45.0); BG PO2 85.5 mmHg (75.0-100.0); BG SAMPLE SITE RIGHT BRACHIAL; BG TIDAL VOLUME(mL) 450 mL; BG TOTAL HEMOGLOBIN 10.1 g/dL (12.0-18.0); BG VENT MODE VENT - A/C; BG VENT RATE 14 set
[2019-08-31] MEDS: ENOXAPARIN 100MG/ML SYR SUBCUT SCH ×2 (09:00→20:40)
[2019-08-31 10:01] LABS: HEMATOCRIT 31.7 % (36.0-48.0); HEMOGLOBIN 10.5 g/dL (12.0-16.0); MEAN CORPUSCULAR HEMOGLOBIN 29.6 pg (28.0-32.0); MEAN CORPUSCULAR VOLUME 89.8 fL (81.0-99.0); PLATELET 368 x1000/uL (130-400); RED BLOOD CELL COUNT 3.53 mill/uL (4.2-5.4); RED CELL DISTRIBUTION WIDTH 15.3 % (11.6-14.6)
[2019-08-31] MEDS: DOCUSATE SODIUM 100MG CAPSULE PO SCH (17:26)
[2019-09-01] VITALS (92 sets, daily range): BP systolic 60–131; BP diastolic 31–102
[2019-09-01] MEDS: BLOOD SUGAR DIAGNOSTIC STRIP TEST SCH ×4 (00:12→17:57)
[2019-09-01] MEDS: PROPOFOL 10MG/ML 100ML 100 ML IV PRN ×6 (00:24→21:43)
[2019-09-01] MEDS: ACETAMINOPHEN 650MG/20.3ML UDC NG PRN ×2 (00:33→08:27)
[2019-09-01] MEDS: ACETYLCYSTEINE 100MG/ML 10% VIAL 4ML INH SCH ×4 (01:17→16:03)
[2019-09-01] MEDS: IPRATROPIUM/ALBUTEROL 0.5-3(2.5)MG/3ML NEB HHN SCH ×4 (01:17→21:10)
[2019-09-01] MEDS: INSULIN LISPRO 100 UNITS/ML SUBCUT SCH ×4 (05:27→17:56)
[2019-09-01 06:42] LABS: HEMATOCRIT 29.2 % (36.0-48.0); HEMOGLOBIN 9.8 g/dL (12.0-16.0); MEAN CORPUSCULAR HEMOGLOBIN 29.9 pg (28.0-32.0); MEAN CORPUSCULAR VOLUME 89.4 fL (81.0-99.0); PLATELET 348 x1000/uL (130-400); RED BLOOD CELL COUNT 3.27 mill/uL (4.2-5.4); RED CELL DISTRIBUTION WIDTH 15.1 % (11.6-14.6)
[2019-09-01 06:53] LABS: CHLORIDE 107 mEq/L (98-107)
[2019-09-01 08:17] LABS: BG BASE EXCESS 4.7 mmol/L (-2.0-2.0); BG CARBOXYHEMOGLOBIN 0.3 % (0.5-1.5); BG DEOXYHEMOGLOBIN 9.8 % (0.0-5.0); BG HCO3 ACT 29.1 mmol/L (22.0-26.0); BG METHEMOGLOBIN 0.1 % (0.0-1.5); BG OXYGEN SATURATION 90.2 % (92.0-98.5); BG OXYHEMOGLOBIN 89.8 % (94.0-97.0); BG PCO2 42.6 mmHg (35.0-45.0); BG PH 7.453 (7.350-7.450); BG PO2 59.5 mmHg (75.0-100.0); BG SAMPLE SITE RIGHT BRACHIAL; BG TIDAL VOLUME(mL) 450 mL; BG TOTAL HEMOGLOBIN 9.6 g/dL (12.0-18.0); BG VENT MODE VENT - A/C; BG VENT RATE 14 set
[2019-09-01] MEDS: ASCORBIC ACID 500 MG TABLET PO SCH (08:29)
[2019-09-01] MEDS: METHYLPREDNISOLONE SOD SUCC 40 MG/ML VIAL IV SCH (08:29)
[2019-09-01] MEDS: ZINC SULFATE 220 MG ( 50 ) CAPSULE PO SCH (08:29)
[2019-09-01] MEDS: FAMOTIDINE 20MG/2ML VIAL IV SCH (08:29)
[2019-09-01] MEDS: DOCUSATE SODIUM 100MG CAPSULE PO SCH ×2 (08:30→16:05)
[2019-09-01] MEDS: ENOXAPARIN 100MG/ML SYR SUBCUT SCH ×2 (08:37→21:02)
[2019-09-01] MEDS ORDERED: FUROSEMIDE 20MG/2ML VIAL IVP SCH (10:45)
[2019-09-01 23:26] LABS: CHLORIDE 104 mEq/L (98-107)
[2019-09-02] VITALS (99 sets, daily range): BP systolic 82–131; BP diastolic 40–84
[2019-09-02] MEDS: PROPOFOL 10MG/ML 100ML 100 ML IV PRN ×6 (01:14→22:14)
[2019-09-02] MEDS: IPRATROPIUM/ALBUTEROL 0.5-3(2.5)MG/3ML NEB HHN SCH ×4 (04:00→20:26)
[2019-09-02] MEDS: ACETAMINOPHEN 650MG/20.3ML UDC NG PRN (04:53)
[2019-09-02] MEDS: MORPHINE SULFATE 2 MG/ML CPJ (NOT FOR IM USE) IV PRN ×2 (05:04→13:00)
[2019-09-02 05:41] LABS: BASOPHILS % 0.4 % (0.0-2.0); EOSINOPHILS % 0.2 % (0.0-5.0); HEMATOCRIT. 30.3 % (36.0-48.0); HEMOGLOBIN. 10.1 g/dL (12.0-16.0); MEAN CORPUSCULAR HEMOGLOBIN 29.9 pg (28.0-32.0); MEAN CORPUSCULAR VOLUME 89.7 fL (81.0-99.0); MEAN PLATELET VOLUME 9.1 fl (7.4-10.4); MONOCYTES % 1.6 % (2.0-8.0); NEUTROPHILS % 88.8 % (40.0-76.0); PLATELET 383 x1000/uL (130-400); RED BLOOD CELL COUNT 3.38 mill/uL (4.2-5.4); RED CELL DISTRIBUTION WIDTH 15.6 % (11.6-14.6)
[2019-09-02 05:46] LABS: BG BASE EXCESS 0.3 mmol/L (-2.0-2.0); BG CARBOXYHEMOGLOBIN 0.1 % (0.5-1.5); BG DEOXYHEMOGLOBIN 15.6 % (0.0-5.0); BG FRACTION INSPIRED OXYGEN 100; BG HCO3 ACT 23.8 mmol/L (22.0-26.0); BG METHEMOGLOBIN 0.1 % (0.0-1.5); BG OXYGEN SATURATION 84.4 % (92.0-98.5); BG OXYHEMOGLOBIN 84.2 % (94.0-97.0); BG PCO2 35.1 mmHg (35.0-45.0); BG PIP 35 cmH2O; BG PO2 51.1 mmHg (75.0-100.0); BG SAMPLE SITE LEFT RADIAL; BG TIDAL VOLUME(mL) 450 mL; BG TOTAL HEMOGLOBIN 12.9 g/dL (12.0-18.0); BG VENT MODE VENT - A/C; BG VENT RATE 14 set
[2019-09-02 05:56] LABS: CHLORIDE 106 mEq/L (98-107)
[2019-09-02] MEDS: INSULIN LISPRO 100 UNITS/ML SUBCUT SCH ×4 (06:00→17:50)
[2019-09-02] MEDS: BLOOD SUGAR DIAGNOSTIC STRIP TEST SCH ×4 (06:17→17:45)
[2019-09-02] MEDS: ASCORBIC ACID 500 MG TABLET PO SCH (08:36)
[2019-09-02] MEDS: METHYLPREDNISOLONE SOD SUCC 40 MG/ML VIAL IV SCH (08:36)
[2019-09-02] MEDS: FAMOTIDINE 20MG/2ML VIAL IV SCH (08:36)
[2019-09-02] MEDS: DOCUSATE SODIUM 100MG CAPSULE PO SCH ×2 (08:36→17:49)
[2019-09-02] MEDS: ZINC SULFATE 220 MG ( 50 ) CAPSULE PO SCH (08:37)
[2019-09-02] MEDS: ENOXAPARIN 100MG/ML SYR SUBCUT SCH ×2 (09:00→22:15)
[2019-09-02] MEDS: ACETYLCYSTEINE 100MG/ML 10% VIAL 4ML INH SCH ×2 (09:31→17:02)
[2019-09-02] MEDS: CEFEPIME 1,000 MG in DEXTROSE 5% WATER 50 ML IV SCH (12:09)
[2019-09-02] MEDS ORDERED: VANCOMYCIN 1500MG in DEXTROSE 5% WATER 250ML IV SCH (12:30)
[2019-09-03] VITALS (97 sets, daily range): BP systolic 96–127; BP diastolic 47–81
[2019-09-03] MEDS: CEFEPIME 1,000 MG in DEXTROSE 5% WATER 50 ML IV SCH ×3 (00:59→23:16)
[2019-09-03] MEDS: BLOOD SUGAR DIAGNOSTIC STRIP TEST SCH ×5 (00:59→23:35)
[2019-09-03] MEDS: INSULIN LISPRO 100 UNITS/ML SUBCUT SCH ×5 (00:59→23:35)
[2019-09-03] MEDS: PROPOFOL 10MG/ML 100ML 100 ML IV PRN ×7 (02:07→21:06)
[2019-09-03] MEDS: IPRATROPIUM/ALBUTEROL 0.5-3(2.5)MG/3ML NEB HHN SCH (02:13)
[2019-09-03 05:48] LABS: BASOPHILS % 0.3 % (0.0-2.0); EOSINOPHILS % 0.3 % (0.0-5.0); HEMATOCRIT. 29.2 % (36.0-48.0); HEMOGLOBIN. 9.8 g/dL (12.0-16.0); LYMPHOCYTES % 9.7 % (20.0-50.0); MEAN CORPUSCULAR HEMOGLOBIN 29.9 pg (28.0-32.0); MEAN CORPUSCULAR VOLUME 88.9 fL (81.0-99.0); MEAN PLATELET VOLUME 8.5 fl (7.4-10.4); MONOCYTES % 2.3 % (2.0-8.0); NEUTROPHILS % 87.4 % (40.0-76.0); PLATELET 416 x1000/uL (130-400); RED BLOOD CELL COUNT 3.28 mill/uL (4.2-5.4); RED CELL DISTRIBUTION WIDTH 15.3 % (11.6-14.6)
[2019-09-03] MEDS: VANCOMYCIN 1 G PREMIX 200 ML IV SCH ×2 (06:00→23:53)
[2019-09-03 06:04] LABS: CHLORIDE 104 mEq/L (98-107)
[2019-09-03 06:12] LABS: PHOSPHORUS 3.3 mg/dL (2.5-4.9)
[2019-09-03] MEDS: FAMOTIDINE 20MG/2ML VIAL IV SCH (08:08)
[2019-09-03] MEDS: ZINC SULFATE 220 MG ( 50 ) CAPSULE PO SCH (08:08)
[2019-09-03] MEDS: DOCUSATE SODIUM 100MG CAPSULE PO SCH ×2 (08:08→16:59)
[2019-09-03] MEDS: ENOXAPARIN 100MG/ML SYR SUBCUT SCH ×2 (08:08→21:06)
[2019-09-03] MEDS: METHYLPREDNISOLONE SOD SUCC 40 MG/ML VIAL IV SCH (08:08)
[2019-09-03] MEDS: ASCORBIC ACID 500 MG TABLET PO SCH (08:08)
[2019-09-03 11:14] LABS: BG BASE EXCESS 1.9 mmol/L (-2.0-2.0); BG CARBOXYHEMOGLOBIN 0.3 % (0.5-1.5); BG FRACTION INSPIRED OXYGEN 100; BG HCO3 ACT 25.4 mmol/L (22.0-26.0); BG METHEMOGLOBIN 0.1 % (0.0-1.5); BG OXYHEMOGLOBIN 93.6 % (94.0-97.0); BG PCO2 35.4 mmHg (35.0-45.0); BG PH 7.474 (7.350-7.450); BG PO2 75.3 mmHg (75.0-100.0); BG SAMPLE SITE RIGHT BRACHIAL; BG TIDAL VOLUME(mL) 450 mL; BG TOTAL HEMOGLOBIN 10.3 g/dL (12.0-18.0); BG VENT MODE VENT - A/C; BG VENT RATE 14 set
[2019-09-03] MEDS ORDERED: LORAZEPAM 2MG/ML CPJ IV PRN (13:00)
[2019-09-03] MEDS ORDERED: MORPHINE SULFATE 2 MG/ML CPJ (NOT FOR IM USE) IV PRN (13:00)
[2019-09-03] MEDS ORDERED: LACTULOSE 20G/30ML UDC PO SCH (13:00)
[2019-09-03] MEDS: ALBUTEROL 6.7GM HFA INHALER INH SCH (23:35)
[2019-09-04] VITALS (97 sets, daily range): BP systolic 94–144; BP diastolic 47–71
[2019-09-04] MEDS: PROPOFOL 10MG/ML 100ML 100 ML IV PRN ×3 (01:46→08:39)
[2019-09-04] MEDS: ALBUTEROL 6.7GM HFA INHALER INH SCH (03:25)
[2019-09-04] MEDS: INSULIN LISPRO 100 UNITS/ML SUBCUT SCH ×4 (06:00→23:38)
[2019-09-04 06:04] LABS: HEMATOCRIT 27.3 % (36.0-48.0); HEMOGLOBIN 9.5 g/dL (12.0-16.0); MEAN CORPUSCULAR HEMOGLOBIN 31.3 pg (28.0-32.0); MEAN CORPUSCULAR VOLUME 89.8 fL (81.0-99.0); PLATELET 402 x1000/uL (130-400); RED BLOOD CELL COUNT 3.04 mill/uL (4.2-5.4); RED CELL DISTRIBUTION WIDTH 15.4 % (11.6-14.6)
[2019-09-04] MEDS: BLOOD SUGAR DIAGNOSTIC STRIP TEST SCH ×4 (06:44→23:38)
[2019-09-04 07:03] LABS: CHLORIDE 103 mEq/L (98-107)
[2019-09-04] MEDS: ASCORBIC ACID 500 MG TABLET PO SCH (08:05)
[2019-09-04] MEDS: ZINC SULFATE 220 MG ( 50 ) CAPSULE PO SCH (08:05)
[2019-09-04] MEDS: METHYLPREDNISOLONE SOD SUCC 40 MG/ML VIAL IV SCH (08:05)
[2019-09-04] MEDS: DOCUSATE SODIUM 100MG CAPSULE PO SCH ×2 (08:05→17:46)
[2019-09-04] MEDS: ENOXAPARIN 100MG/ML SYR SUBCUT SCH ×2 (08:06→21:34)
[2019-09-04] MEDS: IPRATROPIUM/ALBUTEROL 0.5-3(2.5)MG/3ML NEB HHN SCH ×3 (08:17→20:00)
[2019-09-04] MEDS: FAMOTIDINE 20MG/2ML VIAL IV SCH (08:28)
[2019-09-04 08:36] LABS: BG BASE EXCESS -3.9 mmol/L (-2.0-2.0); BG CARBOXYHEMOGLOBIN 0.3 % (0.5-1.5); BG DEOXYHEMOGLOBIN 9.6 % (0.0-5.0); BG FRACTION INSPIRED OXYGEN 100; BG HCO3 ACT 19.8 mmol/L (22.0-26.0); BG METHEMOGLOBIN 0.3 % (0.0-1.5); BG OXYGEN SATURATION 90.3 % (92.0-98.5); BG OXYHEMOGLOBIN 89.8 % (94.0-97.0); BG PCO2 31.2 mmHg (35.0-45.0); BG PO2 66.8 mmHg (75.0-100.0); BG SAMPLE SITE RIGHT BRACHIAL; BG TIDAL VOLUME(mL) 450 mL; BG TOTAL HEMOGLOBIN 10.1 g/dL (12.0-18.0); BG VENT MODE VENT - A/C; BG VENT RATE 14 set
[2019-09-04] MEDS ORDERED: LORAZEPAM 2MG/ML CPJ IV PRN ×2 (10:15→14:15)
[2019-09-04] MEDS: FENTANYL CITRATE/PF 1,000 MCG in SODIUM CHLORIDE 0.9% 80 ML IV PRN (11:06)
[2019-09-04] MEDS: CEFEPIME 1,000 MG in DEXTROSE 5% WATER 50 ML IV SCH ×2 (11:41→23:43)
[2019-09-04] MEDS: MIDAZOLAM HCL 50 MG in DEXTROSE 5% WATER 40 ML IV PRN ×2 (11:43→18:33)
[2019-09-04] MEDS: VANCOMYCIN 1 G PREMIX 200 ML IV SCH (17:46)
[2019-09-04] MEDS: ALBUMIN HUMAN 25GM/100ML (25%) IV SCH (21:34)
[2019-09-05] VITALS (110 sets, daily range): BP systolic 27–132; BP diastolic 17–72
[2019-09-05] MEDS: MIDAZOLAM HCL 100 MG in DEXT 5% WATER 80 ML IV PRN ×2 (01:26→12:25)
[2019-09-05] MEDS: FENTANYL CITRATE/PF 1,000 MCG in SODIUM CHLORIDE 0.9% 80 ML IV PRN (01:26)
[2019-09-05 02:21] LABS: BG BASE EXCESS 2.4 mmol/L (-2.0-2.0); BG CARBOXYHEMOGLOBIN 0.3 % (0.5-1.5); BG DEOXYHEMOGLOBIN 15.4 % (0.0-5.0); BG FRACTION INSPIRED OXYGEN 100; BG HCO3 ACT 29.2 mmol/L (22.0-26.0); BG METHEMOGLOBIN 0.3 % (0.0-1.5); BG OXYGEN SATURATION 84.5 % (92.0-98.5); BG PCO2 56.4 mmHg (35.0-45.0); BG PH 7.332 (7.350-7.450); BG PO2 56.4 mmHg (75.0-100.0); BG SAMPLE SITE RIGHT BRACHIAL; BG TIDAL VOLUME(mL) 450 mL; BG TOTAL HEMOGLOBIN 10.4 g/dL (12.0-18.0); BG VENT MODE VENT - A/C; BG VENT RATE 14 set
[2019-09-05] MEDS: NOREPINEPHRINE 8 MG in DEXT 5% WATER 242 ML IV PRN ×2 (03:44→07:41)
[2019-09-05] MEDS: FENTANYL CITRATE/PF 2,500 MCG in SODIUM CHLORIDE 0.9% 200 ML IV PRN ×2 (04:54→14:16)
[2019-09-05] MEDS: BLOOD SUGAR DIAGNOSTIC STRIP TEST SCH ×8 (05:03→17:31)
[2019-09-05] MEDS: PHENYLEPHRINE 40 MG in DEXT 5% WATER 246 ML IV PRN ×4 (05:03→18:49)
[2019-09-05] MEDS: INSULIN LISPRO 100 UNITS/ML SUBCUT SCH ×3 (05:03→17:31)
[2019-09-05 06:04] LABS: HEMATOCRIT 31.8 % (36.0-48.0); HEMOGLOBIN 9.8 g/dL (12.0-16.0); MEAN CORPUSCULAR HEMOGLOBIN 29.7 pg (28.0-32.0); MEAN CORPUSCULAR VOLUME 96.9 fL (81.0-99.0); PLATELET 452 x1000/uL (130-400); RED BLOOD CELL COUNT 3.29 mill/uL (4.2-5.4); RED CELL DISTRIBUTION WIDTH 16.9 % (11.6-14.6)
[2019-09-05 06:33] LABS: CHLORIDE 105 mEq/L (98-107)
[2019-09-05] MEDS ORDERED: SODIUM BICARBONATE 8.4% 1 MEQ/ML 50ML SYR IV NR ×3 (08:15→11:47)
[2019-09-05] MEDS ORDERED: DEXTROSE 50% WATER 50ML SYRINGE IV NR (08:15)
[2019-09-05] MEDS ORDERED: NOREPINEPHRINE 32 MG in DEXT 5% WATER 468 ML IV PRN (08:15)
[2019-09-05] MEDS ORDERED: INSULIN REGULAR (HUMULIN R) 300UNITS/3ML IV NR (08:15)
[2019-09-05] MEDS ORDERED: DEXTROSE 50% WATER 50ML SYRINGE IV PRN (08:15)
[2019-09-05] MEDS: IPRATROPIUM/ALBUTEROL 0.5-3(2.5)MG/3ML NEB HHN SCH ×2 (08:25→12:25)
[2019-09-05] MEDS: ALBUTEROL 6.7GM HFA INHALER INH SCH ×3 (08:25→19:55)
[2019-09-05] MEDS: ASCORBIC ACID 500 MG TABLET PO SCH (08:52)
[2019-09-05] MEDS: METHYLPREDNISOLONE SOD SUCC 40 MG/ML VIAL IV SCH (08:52)
[2019-09-05] MEDS: ALBUMIN HUMAN 25GM/100ML (25%) IV SCH ×2 (08:52→20:09)
[2019-09-05] MEDS: ZINC SULFATE 220 MG ( 50 ) CAPSULE PO SCH (08:52)
[2019-09-05] MEDS: DOCUSATE SODIUM 100MG CAPSULE PO SCH ×2 (08:52→17:00)
[2019-09-05] MEDS: FAMOTIDINE 20MG/2ML VIAL IV SCH (08:52)
[2019-09-05] MEDS: ENOXAPARIN 100MG/ML SYR SUBCUT SCH ×2 (08:53→20:08)
[2019-09-05 09:05] LABS: BG BASE EXCESS -7.8 mmol/L (-2.0-2.0); BG CARBOXYHEMOGLOBIN 0.5 % (0.5-1.5); BG FRACTION INSPIRED OXYGEN 100; BG HCO3 ACT 22.6 mmol/L (22.0-26.0); BG METHEMOGLOBIN 0.3 % (0.0-1.5); BG OXYGEN SATURATION 75.8 % (92.0-98.5); BG OXYHEMOGLOBIN 75.2 % (94.0-97.0); BG PCO2 74.7 mmHg (35.0-45.0); BG PH 7.098 (7.350-7.450); BG PO2 52.9 mmHg (75.0-100.0); BG SAMPLE SITE RIGHT BRACHIAL; BG TIDAL VOLUME(mL) 450 mL; BG TOTAL HEMOGLOBIN 10.7 g/dL (12.0-18.0); BG VENT MODE VENT - A/C; BG VENT RATE 14 set
[2019-09-05] MEDS ORDERED: SODIUM POLYSTYRENE SULFONATE 15 G/60 ML BOT NG NR (09:30)
[2019-09-05] MEDS: VANCOMYCIN 1 G PREMIX 200 ML IV SCH ×2 (10:17→18:15)
[2019-09-05] MEDS: VASOPRESSIN 10 UNIT in SODIUM CHLORIDE 0.9% 99.5 ML IV PRN ×3 (10:30→19:12)
[2019-09-05 11:24] LABS: BG BASE EXCESS -8.2 mmol/L (-2.0-2.0); BG CARBOXYHEMOGLOBIN 0.2 % (0.5-1.5); BG DEOXYHEMOGLOBIN 17.4 % (0.0-5.0); BG FRACTION INSPIRED OXYGEN 100; BG HCO3 ACT 22.4 mmol/L (22.0-26.0); BG METHEMOGLOBIN 0.3 % (0.0-1.5); BG OXYGEN SATURATION 82.5 % (92.0-98.5); BG OXYHEMOGLOBIN 82.1 % (94.0-97.0); BG PCO2 78.3 mmHg (35.0-45.0); BG PH 7.075 (7.350-7.450); BG PO2 60.1 mmHg (75.0-100.0); BG SAMPLE SITE RIGHT RADIAL; BG TIDAL VOLUME(mL) 450 mL; BG VENT MODE VENT - A/C; BG VENT RATE 22 set
[2019-09-05] MEDS ORDERED: HYDROCORTISONE SOD SUCCINATE 100 MG/2 ML VIAL IV NR ×2 (12:15→13:15)
[2019-09-05] MEDS ORDERED: DEXTROSE 50% WATER 50ML SYRINGE IV ONE (12:58)
[2019-09-05] MEDS ORDERED: SODIUM BICARBONATE 100 MEQ in DEXT 5%/0.45% NACL 1000ML 1,000 ML IV SCH (13:00)
[2019-09-05] MEDS ORDERED: HYDROCORTISONE SOD SUCCINATE 100 MG/2 ML VIAL IV ONE (13:08)
[2019-09-05] MEDS: CEFEPIME 1,000 MG in DEXTROSE 5% WATER 50 ML IV SCH (15:39)
[2019-09-05] MEDS: ACETAMINOPHEN 650MG/20.3ML UDC NG PRN (15:51)
[2019-09-05] MEDS ORDERED: HYDROCORTISONE SOD SUCCINATE 100 MG/2 ML VIAL IV SCH (20:00)
[2019-09-05] MEDS ORDERED: EPINEPHRINE 0.1MG/ML (1:10,000) 10ML SYR ONE (20:46)
[2019-09-05] MEDS ORDERED: DEXTROSE 50% WATER 50ML VIAL IV ONE (20:46)
[2019-09-05] MEDS ORDERED: SODIUM BICARBONATE 8.4% MEQ/ML 50ML VIAL IV ONE (20:46)
[2019-09-05] MEDS ORDERED: EPINEPHRINE 1 MG in SODIUM CHLORIDE 0.9% 249 ML IV PRN (21:00)
== END 2019-09-05 21:13 | disposition expired | DRG 870 ==
LOC: ER 12:39 → MICUNO 14:02 → EDBEDREQ 14:06 → EDBEDREQTM 14:06 → SUPCPDRO 14:25 → EDBEDREQTM 08-22 00:16 → EDBEDREQDT 08-22 00:16 → EDBEDREQSVC 08-22 00:16 → ENRESERV 08-23 08:16
PROVIDERS: ADMIT Internal Medicine; ATTEND Internal Medicine
PROC: 0BH17EZ Insertion of Endotracheal Airway into Trachea, Via Natural or Artificial Opening (ICD-10-PCS; principal; 2019-08-22)
PROC: 5A1955Z Respiratory Ventilation, Greater than 96 Consecutive Hours (ICD-10-PCS; 2019-08-22)
PROC: 02HV33Z Insertion of Infusion Device into Superior Vena Cava, Percutaneous Approach (ICD-10-PCS; 2019-08-22)
PROC: B548ZZA Ultrasonography of Superior Vena Cava, Guidance (ICD-10-PCS; 2019-08-22)
PROC: 5A12012 Performance of Cardiac Output, Single, Manual (ICD-10-PCS; 2019-09-05)
DX: A41.89 Other specified sepsis (principal); U07.1 COVID-19; J96.01 Acute respiratory failure with hypoxia; J12.89 Other viral pneumonia; I21.4 Non-ST elevation (NSTEMI) myocardial infarction; G93.40 Encephalopathy, unspecified; D68.59 Other primary thrombophilia; E87.6 Hypokalemia; E66.9 Obesity, unspecified; I10 Essential (primary) hypertension; E78.1 Pure hyperglyceridemia; E87.5 Hyperkalemia; I46.9 Cardiac arrest, cause unspecified; E11.9 Type 2 diabetes mellitus without complications; Z79.84 Long term (current) use of oral hypoglycemic drugs; Z79.899 Other long term (current) drug therapy; Z78.1 Physical restraint status; Z68.33 Body mass index [BMI] 33.0-33.9, adult
CPT/HCPCS: 36415; 36600; 71045; 74018; 76937; 80048; 80053; 80076; 80202; 81003; 82375; 82728; 82805; 82962; 83036; 83615; 83735; 83880; 84100; 84145; 84478; 84484; 85025; 85027; 85379; 86140; 86850; 86900; 87070; 87635; 87804; 93005; 94003; 94640; 99285; 99291; C1725; J0330; J0360; J0692; J1200; J1650; J1720; J1815; J1940; J2060; J2250; J2270; J2370; J2543; J2704; J2920; J3010; J3370; J3480; J3490; J7050; J7060; J7608; P9047